=== PATIENT | female | born 1985 | race Caucasian/White ===

== ENCOUNTER 2022-12-17 16:25 | Emergency (ER) | payer MEDICARE, OTHER ==
--- NOTE | 2022-12-17 17:20 | ED ---
General Adult HPI - General Source: RN notes reviewed <Carolyn Riddle - Last Filed: 12/17/22 17:19> <Aniket Keyes - Last Filed: 12/17/22 20:54> - General Stated complaint: sob Time Seen by Provider: 12/17/22 17:19 - History of Present Illness Initial comments: 37-year-old female who is deaf presents the emergency department the chief complaint of shortness of breath 2 weeks. Patient denies history of pulmonary embolism. Denies anticoagulant use. (Carolyn Riddle) 37-year-old female with a past medical history significant for deafness and asthma presents to the ED with a chief complaint of cough. Patient states for the past 2 weeks has had cough, congestion, tightness in her chest, and pain across her chest especially with deep breath and cough. States that she was initially seen at [facility] urgent [facility] and was prescribed a Medrol Dosepak and antibiotics. Despite taking these, patient reports that symptoms continuous and tightness in her chest increased today prompting presentation again to [facility] urgent [facility]. There, x-ray of the chest performed which showed no evidence of pneumonia. However there are, patient tachycardic and with complaints of chest pain sent to the ED to rule out PE. (Aniket Keyes) - Related Data Allergies Allergy/AdvReac Type Severity Reaction Status Date / Time No Known Allergies Allergy Verified 12/17/22 19:36 Review of Systems ROS Other: All systems not noted in ROS Statement are negative. <Carolyn Riddle - Last Filed: 12/17/22 17:19> ROS Other: All systems not noted in ROS Statement are negative. <Aniket Keyes - Last Filed: 12/17/22 20:54> ROS Statement: Those systems with pertinent positive or pertinent negative responses have been documented in the HPI. General Exam General appearance: alert, in no apparent distress Head exam: Present: atraumatic, normocephalic, normal inspection Eye exam: Present: normal appearance, PERRL, EOMI. Absent: scleral icterus, conjunctival injection, periorbital swelling ENT exam: Present: normal exam, mucous membranes moist Neck exam: Present: normal inspection. Absent: tenderness, meningismus, lympha denopathy Respiratory exam: Present: normal lung sounds bilaterally. Absent: respiratory distress, wheezes, rales, rhonchi, stridor Cardiovascular Exam: Present: regular rate, normal rhythm, normal heart sounds. Absent: systolic murmur, diastolic murmur, rubs, gallop, clicks GI/Abdominal exam: Present: soft, normal bowel sounds. Absent: distended, tenderness, guarding, rebound, rigid Extremities exam: Present: normal inspection, full ROM, normal capillary refill. Absent: tenderness, pedal edema, joint swelling, calf tenderness Back exam: Present: normal inspection Neurological exam: Present: alert, oriented X3, CN II-XII intact Psychiatric exam: Present: normal affect, normal mood Skin exam: Present: warm, dry, intact, normal color. Absent: rash <Carolyn Riddle - Last Filed: 12/17/22 17:19> Limitations: language barrier (Deaf) General appearance: alert, in no apparent distress Neck exam: Present: normal inspection Respiratory exam: Present: normal lung sounds bilaterally (Mimimal inspiratory and expiratory wheezing otherwise no dyspnea. Respiratory rate regular) Cardiovascular Exam: Present: normal rhythm, tachycardia Extremities exam: Present: normal inspection Back exam: Present: normal inspection Neurological exam: Present: alert, oriented X3 Skin exam: Present: warm, dry <Aniket Keyes - Last Filed: 12/17/22 20:54> - General Exam Comments Initial Comments: Visual Physical Exam Vital signs reviewed General: Well-appearing, nontoxic, no acute distress. Head: Normocephalic, atraumatic Eyes: PERRLA, EOMI ENT: Airway patent Chest: Nonlabored breathing Skin: No visual rash, normal skin tone Neuro: Alert and oriented 3 Musculoskeletal: No gross abnormalities I performed the quick note portion of this exam, verbal signature Carolyn Riddle PA-C (Carolyn Riddle) Course Vital Signs 12/17/22 12/17/22 17:12 19:36 Temperature 98.2 F Pulse Rate 111 H Respiratory 20 18 Rate Blood Pressure 114/70 O2 Sat by Pulse 98 Oximetry Medical Decision Making - Lab Data Result diagrams: 12/17/22 19:18 12/17/22 19:18 <Aniket Keyes - Last Filed: 12/17/22 20:54> - Medical Decision Making Was pt. sent in by a medical professional or institution ([facility], [employer], urgent care, hospital, or residential...) When possible be specific @ -No Did you speak to anyone other than the patient for history (EMS, parent, family, police, friend...)? What history was obtained from this source @ -No Did you review nursing and triage notes (agree or disagree)? Why? @ -I reviewed and agree with nursing and triage notes Were old charts reviewed (outside hosp., previous admission, EMS record, old EKG, old radiological studies, urgent care reports/EKG's, residential records)? Report findings @ -[facility] urgent care records reviewed showing a chest x-ray with no evidence of pneumonia. Patient was found to be tachycardic care and was advised to present to the ED to rule out embolism. Differential Diagnosis (chest pain, altered mental status, abdominal pain women, abdominal pain men, vaginal bleeding, weakness, fever, dyspnea, syncope, headache, dizziness, GI bleed, back pain, seizure, CVA, palpatations, mental health, musculoskeletal)? @ -Differential Dyspnea: Coronary syndrome, arrhythmia, tamponade, asthma, COPD, pulmonary embolism, pneumonia, pneumothorax, pulmonary effusion, anaphylaxis, diabetic ketoacidosis, flailed chest, pulmonary contusion, diaphragmatic rupture, anemia, neuromuscular, this is not meant to be an all-inclusive list. EKG interpreted by me (3pts min.). @ -As above X-rays interpreted by me (1pt min.). @ -Chest x-ray By me showing no evidence of pneumonia or other acute process. CT interpreted by me (1pt min.). @ -None done U/S interpreted by me (1pt. min.). @ -None done What testing was considered but not performed or refused? (CT, X-rays, U/S, labs)? Why? @ -None What meds were considered but not given or refused? Why? @ -None Did you discuss the management of the patient with other professionals (professionals i.e. [facility] De Jesus, [employer], lab, RT, psych nurse, case management social worker, cushion worker, teacher, command and control officer, case management director)? Give summary @ -No Was smoking cessation discussed for >3mins.? @ -No Was critical care preformed (if so, how long)? @ -No Were there social determinants of health that impacted care today? How? (Homelessness, low income, unemployed, alcoholism, drug addiction, transportation, low edu. Level, literacy, decrease access to med. care, snf, rehab)? @ -No Was there de-escalation of care discussed even if they declined (Discuss DNR or withdrawal of care, Hospice)? DNR status @ -No What co-morbidities impacted this encounter? (DM, HTN, Smoking, COPD, CAD, Cancer, CVA, ARF, Chemo, Hep., AIDS, mental health diagnosis, sleep apnea, morbid obesity)? @ -Asthma Was patient admitted / discharged? Hospital course, mention meds given and route, prescriptions, significant lab abnormalities, going to OR and other pertinent info. @ -Discharge 37-year-old female presenting to the ED with complaints of cough, chest tightness, and intermittent chest pain across her chest especially with deep breath or cough is acting today to the ED to rule out a PE.Laboratory studies show an elevated white blood cell count 11.3 otherwise unremarkable, D-dimer 0.30. Chemistry panel unremarkable. Troponin negative. Chest x-ray shows no evidence of pneumonia or other acute process. Patient had improvement of his tightness here with DuoNeb breathing treatment. Provided Solu-Medrol IM as well. Patient discharged home in stable condition. Discussed return precautions with patient who verbalizes agreement. Undiagnosed new problem with uncertain prognosis? @ -No Drug Therapy requiring intensive monitoring for toxicity (Heparin, Nitro, Insulin, Cardizem)? @ -No Were any procedures done? @ -No Diagnosis/symptom? @ -Bronchitis Acute, or Chronic, or Acute on Chronic? @ -Acute Uncomplicated (without systemic symptoms) or Complicated (systemic symptoms)? @ -Uncomplicated Side effects of treatment? @ -No Exacerbation, Progression, or Severe Exacerbation? @ -No Poses a threat to life or bodily function? How? (Chest pain, USA, SD, pneumonia, PE, COPD, DKA, ARF, appy, cholecystitis, CVA, Diverticulitis, Homicidal, Suicidal, threat to staff... and all critical care pts) @ -No (Aniket Keyes) - Lab Data Lab Results 12/17/22 12/17/22 12/17/22 Range/Units 19:18 19:18 19:18 WBC 11.3 H (3.8-10.6) k/uL RBC 5.01 (3.80-5.40) m/uL Hgb 14.3 (11.4-16.0) gm/dL Hct 44.0 (34.0-46.0) % MCV 87.9 (80.0-100.0) fL MCH 28.6 (25.0-35.0) pg MCHC 32.5 (31.0-37.0) g/dL RDW 13.6 (11.5-15.5) % Plt Count 333 (150-450) k/uL MPV 7.8 Neutrophils % 66 % Lymphocytes % 26 % Monocytes % 4 % Eosinophils % 2 % Basophils % 1 % Neutrophils # 7.5 (1.3-7.7) k/uL Lymphocytes # 3.0 (1.0-4.8) k/uL Monocytes # 0.4 (0-1.0) k/uL Eosinophils # 0.3 (0-0.7) k/uL Basophils # 0.1 (0-0.2) k/uL PT 10.0 (10.0-12.5) sec INR 0.9 (<1.2) APTT 25.5 (22.0-30.0) sec D-Dimer 0.30 (<0.60) mg/L FEU Sodium 137 (137-145) mmol/L Potassium 4.4 (3.5-5.1) mmol/L Chloride 103 (98-107) mmol/L Carbon Dioxide 22 (22-30) mmol/L Anion Gap 12 mmol/L BUN 8 (7-17) mg/dL Creatinine 0.43 L (0.52-1.04) mg/dL Est GFR (CKD-EPI)AfAm >90 (>60 ml/min/1.73 sqM) Est GFR (CKD-EPI)NonAf >90 (>60 ml/min/1.73 sqM) Glucose 99 (74-99) mg/dL Calcium 9.3 (8.4-10.2) mg/dL Total Bilirubin 0.5 (0.2-1.3) mg/dL AST 18 (14-36) U/L ALT 23 (4-34) U/L Alkaline Phosphatase 96 (38-126) U/L Troponin I (0.000-0.034) ng/mL Total Protein 7.5 (6.3-8.2) g/dL Albumin 4.2 (3.5-5.0) g/dL Influenza Type A (PCR) (Not Detectd) Influenza Type B (PCR) (Not Detectd) RSV (PCR) (Not Detectd) SARS-CoV-2 (PCR) (Not Detectd) 12/17/22 12/17/22 Range/Units 19:18 19:18 WBC (3.8-10.6) k/uL RBC (3.80-5.40) m/uL Hgb (11.4-16.0) gm/dL Hct (34.0-46.0) % MCV (80.0-100.0) fL MCH (25.0-35.0) pg MCHC (31.0-37.0) g/dL RDW (11.5-15.5) % Plt Count (150-450) k/uL MPV Neutrophils % % Lymphocytes % % Monocytes % % Eosinophils % % Basophils % % Neutrophils # (1.3-7.7) k/uL Lymphocytes # (1.0-4.8) k/uL Monocytes # (0-1.0) k/uL Eosinophils # (0-0.7) k/uL Basophils # (0-0.2) k/uL PT (10.0-12.5) sec INR (<1.2) APTT (22.0-30.0) sec D-Dimer (<0.60) mg/L FEU Sodium (137-145) mmol/L Potassium (3.5-5.1) mmol/L Chloride (98-107) mmol/L Carbon Dioxide (22-30) mmol/L Anion Gap mmol/L BUN (7-17) mg/dL Creatinine (0.52-1.04) mg/dL Est GFR (CKD-EPI)AfAm (>60 ml/min/1.73 sqM) Est GFR (CKD-EPI)NonAf (>60 ml/min/1.73 sqM) Glucose (74-99) mg/dL Calcium (8.4-10.2) mg/dL Total Bilirubin (0.2-1.3) mg/dL AST (14-36) U/L ALT (4-34) U/L Alkaline Phosphatase (38-126) U/L Troponin I <0.012 (0.000-0.034) ng/mL Total Protein (6.3-8.2) g/dL Albumin (3.5-5.0) g/dL Influenza Type A (PCR) Not Detected (Not Detectd) Influenza Type B (PCR) Not Detected (Not Detectd) RSV (PCR) Not Detected (Not Detectd) SARS-CoV-2 (PCR) Not Detected (Not Detectd) Disposition <Carolyn Riddle - Last Filed: 12/17/22 17:19> Is patient prescribed a controlled substance at d/c from ED?: No Time of Disposition: 20:54 <Aniket Keyes - Last Filed: 12/17/22 20:54> Clinical Impression: Bronchitis, Asthma exacerbation Disposition: HOME SELF-CARE Condition: Good Instructions (If sedation given, give patient instructions): Asthma (ED), Acute Bronchitis (ED) Additional Instructions: Please return to the Emergency Department if symptoms worsen or any other concerns. Referrals: Sushant Petty MD [REFERRING] - 1-2 days
[2022-12-17 17:23] VITALS: TEMP 98.2
[2022-12-17 19:44] VITALS: RESP 18
[2022-12-17 20:04] LABS: Basophils # (A) 0.1 k/uL (0-0.2); Basophils % (A) 1 %; Eosinophils # (A) 0.3 k/uL (0-0.7); Eosinophils % (A) 2 %; HGB 14.3 gm/dL (11.4-16.0); Lymphocytes % (A) 26 %; MCH 28.6 pg (25.0-35.0); MCHC 32.5 g/dL (31.0-37.0); MCV 87.9 fL (80.0-100.0); Mean Platelet Volume 7.8; Monocytes # (A) 0.4 k/uL (0-1.0); Monocytes % (A) 4 %; Neutrophils # (A) 7.5 k/uL (1.3-7.7); Neutrophils % (A) 66 %; Platelet Count 333 k/uL (150-450); RBC 5.01 m/uL (3.80-5.40); RDW 13.6 % (11.5-15.5); WBC 11.3 k/uL (3.8-10.6)
[2022-12-17 20:17] LABS: ALT 23 U/L (4-34); AST 18 U/L (14-36); African American GFR (CKD) >90 (>60 ml/min/1.73 sqM); Albumin 4.2 g/dL (3.5-5.0); Alkaline Phosphatase 96 U/L (38-126); Anion Gap 12 mmol/L; Blood Urea Nitrogen 8 mg/dL (7-17); Calcium 9.3 mg/dL (8.4-10.2); Carbon Dioxide 22 mmol/L (22-30); Chloride 103 mmol/L (98-107); Glucose 99 mg/dL (74-99); Non-African American GFR(CKD) >90 (>60 ml/min/1.73 sqM); Potassium 4.4 mmol/L (3.5-5.1); Sodium 137 mmol/L (137-145); Total Bilirubin 0.5 mg/dL (0.2-1.3); Total Protein 7.5 g/dL (6.3-8.2)
[2022-12-17 20:19] LABS: INR 0.9 (<1.2); Partial Thromboplastin Time 25.5 sec (22.0-30.0)
[2022-12-17] MEDS ORDERED: IPRATROPIUM-ALBUTEROL 3 ML NEB INHALATION STA (20:33)
[2022-12-17] MEDS ORDERED: methylPREDNISolone SOD SUCCI 125 MG/2 ML VIAL IM ONE (20:54)
[2022-12-17 21:09] LABS: Appearance,Urine Cloudy (Clear); Bacteria,Urine Occasional /hpf; Bilirubin,Urine Negative (Negative); Blood,Urine Negative (Negative); Color,Urine Light Yellow; Glucose,Urine (UA) Negative (Negative); Ketones,Urine Negative (Negative); Leukocyte Esterase,Urine Negative (Negative); Mucus,Urine Few /hpf; Nitrite,Urine Negative (Negative); PH, Urine 5.5 (5.0-8.0); Protein,Urine Negative (Negative); RBC,Urine 1 /hpf (0-5); Squamous Epithelial Cell,Urine 11 /hpf (0-4); Urobilinogen,Urine <2.0 mg/dL (<2.0); WBC,Urine <1 /hpf (0-5)
[2022-12-17] MEDS ORDERED: methylPREDNISolone SOD SUCCI 125 MG/2 ML VIAL IV STA (21:11)
--- NOTE | 2022-12-17 21:33 | XR ---
EXAMINATION TYPE: XR chest 2V DATE OF EXAM: 12/17/2022 6:54 PM CLINICAL INDICATION:Female, 37 years old with history of SOB; [facility] COMPARISON: None TECHNIQUE: XR chest 2V Frontal and lateral views of the chest. FINDINGS: Lines/Tubes: No indwelling lines are seen. Lungs/Pleura: There is no evidence of pleural effusion, focal consolidation, or pneumothorax. Pulmonary vascularity: Unremarkable. Heart/mediastinum: Cardiomediastinal silhouette is unremarkable. Musculoskeletal: No acute osseous pathology. Other findings: Partially seen surgical clips over the upper abdomen. IMPRESSION: No acute cardiopulmonary disease/process.
[2022-12-17 22:57] VITALS: BP 123/75; PULSE 100
== END 2022-12-17 22:51 | disposition home or self-care (01) ==
LOC: EC 16:25
DX: J45.901 Unspecified asthma with (acute) exacerbation (principal); Z20.822 Contact with and (suspected) exposure to COVID-19
CPT/HCPCS: 36415; 94640; 93005; 85379; 80053; 84484; 85025; 85610; 85730; 81001; 81025; 87636; 71046; 99285; 96374; J2930

== ENCOUNTER 2023-10-21 17:35 | Emergency (ER) | payer MEDICARE, OTHER ==
[2023-10-21] MEDS ORDERED: SODIUM CHLORIDE 0.9% 1,000 ML BAG ONE (20:20)
[2023-10-21] MEDS ORDERED: HYDROmorphone 0.5 MG/0.5 ML SYRINGE ONE (21:59)
[2023-10-21] MEDS ORDERED: ONDANSETRON 4 MG/2 ML VIAL ONE (21:59)
[2023-10-21] MEDS ORDERED: levETIRAcetam IV 500 MG/5 ML VIAL ONE (22:04)
[2023-10-22] MEDS ORDERED: ACETAMINOPHEN TAB 500 MG TAB ONE (00:20)
--- NOTE | 2023-11-11 13:59 | CT ---
EXAMINATION TYPE: CT facial bones wo con CT DLP: 683 mGycm, Automated exposure control for dose reduction was used. DATE OF EXAM: 10/21/2023 9:29 PM COMPARISON: None. CLINICAL INDICATION:Seizure, fall. Site ID [facility] Arlene Hoyt ID [id number] TECHNIQUE: Multiple unenhanced axial CT images were obtained of the facial bones soft tissue and bone windows. Coronal, axial and sagittal reformatted images were also provided in soft tissue and bone windows and submitted for interpretation. Additional 3-D reformatted images were obtained on a [employer] workstation. FINDINGS: There is no evidence of fracture, subluxation, dislocation, or significant soft tissue swelling. The orbital contents are unremarkable.The temporal-mandibular joints appear symmetric. The visualized por tion of the paranasal sinuses appear clear. Leftward deviation of the nasal septum. Right ear cochle ar implant device partially visualized. IMPRESSION: No acute process.
--- NOTE | 2023-11-17 08:39 | XR ---
EXAMINATION TYPE: XR ribs LT w pa chest xray DATE OF EXAM: 10/21/2023 9:15 PM CLINICAL INDICATION: Left-sided rib pain. Site ID [facility] Arlene Hoyt ID [id number] COMPARISON: None TECHNIQUE: Frontal and oblique views of the left ribs with frontal chest radiograph. FINDINGS: The ribs have a normal appearance. No evidence of fracture. Overall, the lungs are clear. The cardiac silhouette is normal in size. The remaining osseous structures are intact. IMPRESSION: No acute displaced rib fracture or process.
== END 2023-10-22 01:10 | disposition home or self-care (01) ==
LOC: EC 17:35
CPT/HCPCS: 70486; 93005; 96374; 96375; 99284

== ENCOUNTER 2024-02-03 15:15 | Emergency (ER) | payer MEDICARE, OTHER ==
[2024-02-03 16:25] VITALS: RESP 18
[2024-02-03 17:27] LABS: Basophils # (A) 0.1 k/uL (0-0.2); Basophils % (A) 0 %; Eosinophils # (A) 0.3 k/uL (0-0.7); Eosinophils % (A) 2 %; HCT 38.8 % (34.0-46.0); HGB 12.8 gm/dL (11.4-16.0); Lymphocytes % (A) 24 %; MCH 28.8 pg (25.0-35.0); MCHC 32.9 g/dL (31.0-37.0); MCV 87.5 fL (80.0-100.0); Mean Platelet Volume 7.4; Monocytes # (A) 0.4 k/uL (0-1.0); Monocytes % (A) 4 %; Neutrophils # (A) 8.5 k/uL (1.3-7.7); Neutrophils % (A) 69 %; Platelet Count 327 k/uL (150-450); RBC 4.43 m/uL (3.80-5.40); RDW 13.9 % (11.5-15.5); WBC 12.4 k/uL (3.8-10.6)
--- NOTE | 2024-02-03 17:27 | XR ---
EXAMINATION TYPE: XR chest 2V DATE OF EXAM: 02/03/2024 4:41 PM COMPARISON: Left rib radiograph 11/24/2023, chest radiograph 12/17/2022 TECHNIQUE: XR chest 2V Frontal and lateral views of the chest. CLINICAL INDICATION:Female, 38 years old with history of difficulty breathing; FINDINGS: Lungs/Pleura: There is no evidence of pleural effusion, focal consolidation, or pneumothorax. Pulmonary vascularity: Unremarkable. Heart/mediastinum: Cardiomediastinal silhouette is unremarkable. Musculoskeletal: No acute osseous pathology. IMPRESSION: No acute cardiopulmonary disease/process. [facility], , 02/03/2024 5:25 PM
[2024-02-03 17:31] LABS: VBG PH 7.26 (7.31-7.41)
--- NOTE | 2024-02-03 17:38 | ED ---
SOB HPI - General Chief Complaint: Shortness of Breath Stated Complaint: Abn Labs Time Seen by Provider: 02/03/24 15:34 Source: patient, healthcare architect, RN notes reviewed Mode of arrival: ambulatory Limitations: no limitations - History of Present Illness MD Complaint: shortness of breath Onset/Timin -: days(s) Consistency: constant Improves With: upright position Worsens With: lying flat, exertion Known History Of: asthma Associated Symptoms: orthopnea Treatments Prior to Arrival: bronchodilator - Related Data Previous Rx's Medication Instructions Recorded Azithromycin [Zithromax Z Pack] 250 tab PO DIRECTED #4 tab 02/03/24 predniSONE 10 mg PO DIRECTED #30 tab 02/03/24 Allergies Allergy/AdvReac Type Severity Reaction Status Date / Time No Known Allergies Allergy Verified 12/17/22 19:36 Review of Systems ROS Statement: Those systems with pertinent positive or pertinent negative responses have been documented in the HPI. ROS Other: All systems not noted in ROS Statement are negative. Past Medical History Past Medical History: Asthma, Hearing Disorder / Deafness, Seizure Disorder Additional Past Medical History / Comment(s): deaf Past Surgical History: Section, Cholecystectomy Additional Past Surgical History / Comment(s): L foot. chochlear implant Smoking Status: Never smoker Past Alcohol Use History: None Reported Past Drug Use History: None Reported General Exam Limitations: no limitations General appearance: alert, in no apparent distress Head exam: Present: atraumatic, normocephalic, normal inspection Eye exam: Present: normal appearance, PERRL, EOMI. Absent: scleral icterus, conjunctival injection, periorbital swelling ENT exam: Present: normal exam, mucous membranes moist Neck exam: Present: normal inspection. Absent: tenderness, meningismus, lymphadenopathy Respiratory exam: Present: rales (Rales auscultated in apex of bilateral lower lobes), decreased breath sounds (Diminished lung sounds in the bases of bilateral lower and upper lobes). Absent: respiratory distress, wheezes, rhonchi, stridor Cardiovascular Exam: Present: regular rate, normal rhythm, normal heart sounds. Absent: systolic murmur, diastolic murmur, rubs, gallop, clicks GI/Abdominal exam: Present: soft, normal bowel sounds. Absent: distended, tenderness, guarding, rebound, rigid Extremities exam: Present: normal inspection, full ROM, normal capillary refill, other (Bilateral posterior tibialis pulse +2). Absent: tenderness, pedal edema, joint swelling, calf tenderness Back exam: Present: normal inspection Neurological exam: Present: alert, oriented X3, CN II-XII intact Psychiatric exam: Present: normal affect, normal mood Skin exam: Present: warm, dry, intact, normal color. Absent: rash Course Vital Signs 02/03/24 02/03/24 02/03/24 15:42 16:17 19:01 Temperature 98.6 F Pulse Rate 90 94 Respiratory 20 18 Rate Blood Pressure 98/69 O2 Sat by Pulse 99 Oximetry 02/03/24 19:09 Temperature Pulse Rate 88 Respiratory Rate Blood Pressure O2 Sat by Pulse Oximetry Medical Decision Making - Medical Decision Making Was pt. sent in by a medical professional or institution (CLARIBEL De Jesus, PRACTICE OR STUDENT TEACHER, urgent care, hospital, or group home...) When possible be specific @ -[No] Did you speak to anyone other than the patient for history (EMS, parent, family, police, friend...)? What history was obtained from this source @ -[No] Did you review nursing and triage notes (agree or disagree)? Why? @ -[I reviewed and agree with nursing and triage notes] Were old charts reviewed (outside hosp., previous admission, EMS record, old EKG, old radiological studies, urgent care reports/EKG's, group home records)? Report findings @ -[No old charts were reviewed] Differential Diagnosis (chest pain, altered mental status, abdominal pain women, abdominal pain men, vaginal bleeding, weakness, fever, dyspnea, syncope, headache, dizziness, GI bleed, back pain, seizure, CVA, palpatations, mental health, musculoskeletal)? @ -Differential Dyspnea: Coronary syndrome, arrhythmia, tamponade, asthma, COPD, pulmonary embolism, pneumonia, pneumothorax, pulmonary effusion, anaphylaxis, diabetic ketoacidosis, flailed chest, pulmonary contusion, diaphragmatic rupture, anemia, neuromuscular, this is not meant to be an all-inclusive list. EKG interpreted by me (3pts min.). @ -Sinus rhythm without ST changes or T wave inversion. Ventricular rate 86 bpm, MARCOS 153 ms, QRS duration 85 ms, QTc 392 ms. X-rays interpreted by me (1pt min.). @ -Chest x-ray shows no pleural effusion, focal infiltrates, pulmonary edema or pneumothorax. Patient insists on CT scan despite negative CXR findings. CT interpreted by me (1pt min.). @ -[None done] U/S interpreted by me (1pt. min.). @ -[None done] What testing was considered but not performed or refused? (CT, X-rays, U/S, labs)? Why? @ -[None] What meds were considered but not given or refused? Why? @ -[None] Did you discuss the management of the patient with other professionals (professionals i.e. , PA, PRACTICE OR STUDENT TEACHER, lab, RT, psych nurse, director social welfare, scientific process operator, teacher, associate loan officer, case resource manager)? Give summary @ -[No] Was smoking cessation discussed for >3mins.? @ -[No] Was critical care preformed (if so, how long)? @ -[No] Were there social determinants of health that impacted care today? How? (Homelessness, low income, unemployed, alcoholism, drug addiction, transportation, low edu. Level, literacy, decrease access to med. care, skilled nursing, rehab)? @ -[No] Was there de-escalation of care discussed even if they declined (Discuss DNR or withdrawal of care, Hospice)? DNR status @ -[No] What co-morbidities impacted this encounter? (DM, HTN, Smoking, COPD, CAD, Cancer, CVA, ARF, Chemo, Hep., AIDS, mental health diagnosis, sleep apnea, morbid obesity)? @ -[None] Was patient admitted / discharged? Hospital course, mention meds given and route, prescriptions, significant lab abnormalities, going to OR and other pertinent info. @ -[hospital course] Undiagnosed new problem with uncertain prognosis? @ -[No] Drug Therapy requiring intensive monitoring for toxicity (Heparin, Nitro, Insulin, Cardizem)? @ -[No] Were any procedures done? @ -[No] Diagnosis/symptom? @ -Acute bronchitis, asthma Acute, or Chronic, or Acute on Chronic? @ -Acute Uncomplicated (without systemic symptoms) or Complicated (systemic symptoms)? @ -Complicated Side effects of treatment? @ -[No] Exacerbation, Progression, or Severe Exacerbation? @ -Progression Poses a threat to life or bodily function? How? (Chest pain, [place], [place], pneumonia, PE, COPD, DKA, ARF, appy, cholecystitis, CVA, Diverticulitis, Homicidal, Suicidal, threat to staff... and all critical care pts) @ -[No] - Lab Data Result diagrams: 02/03/24 17:14 02/03/24 17:14 Lab Results 02/03/24 02/03/24 02/03/24 Range/Units 17:14 17:14 17:14 WBC 12.4 H (3.8-10.6) k/uL RBC 4.43 (3.80-5.40) m/uL Hgb 12.8 (11.4-16.0) gm/dL Hct 38.8 (34.0-46.0) % MCV 87.5 (80.0-100.0) fL MCH 28.8 (25.0-35.0) pg MCHC 32.9 (31.0-37.0) g/dL RDW 13.9 (11.5-15.5) % Plt Count 327 (150-450) k/uL MPV 7.4 Neutrophils % 69 % Lymphocytes % 24 % Monocytes % 4 % Eosinophils % 2 % Basophils % 0 % Neutrophils # 8.5 H (1.3-7.7) k/uL Lymphocytes # 3.0 (1.0-4.8) k/uL Monocytes # 0.4 (0-1.0) k/uL Eosinophils # 0.3 (0-0.7) k/uL Basophils # 0.1 (0-0.2) k/uL PT 9.7 L (10.0-12.5) sec INR 0.9 (<1.2) APTT 25.3 (22.0-30.0) sec D-Dimer 0.48 (<0.60) mg/L FEU VBG pH (7.31-7.41) VBG pCO2 (37-51) mmHg VBG HCO3 (24-28) mmol/L Sodium 136 L (137-145) mmol/L Potassium 3.4 L (3.5-5.1) mmol/L Chloride 103 (98-107) mmol/L Carbon Dioxide 25 (22-30) mmol/L Anion Gap 8 mmol/L BUN 6 L (7-17) mg/dL Creatinine 0.53 (0.52-1.04) mg/dL Est GFR (CKD-EPI)AfAm >90 (>60 ml/min/1.73 sqM) Est GFR (CKD-EPI)NonAf >90 (>60 ml/min/1.73 sqM) Glucose 129 H (74-99) mg/dL Lactic Ac Sepsis Rflx Plasma Lactic Acid Kody (0.7-2.0) mmol/L Calcium 9.0 (8.4-10.2) mg/dL Total Bilirubin 0.6 (0.2-1.3) mg/dL AST 13 L (14-36) U/L ALT 24 (4-34) U/L Alkaline Phosphatase 100 (38-126) U/L Troponin I (0.000-0.034) ng/mL NT-Pro-B Natriuret Pep 33 pg/mL Total Protein 7.2 (6.3-8.2) g/dL Albumin 4.2 (3.5-5.0) g/dL 02/03/24 02/03/24 02/03/24 Range/Units 17:14 17:14 17:14 WBC (3.8-10.6) k/uL RBC (3.80-5.40) m/uL Hgb (11.4-16.0) gm/dL Hct (34.0-46.0) % MCV (80.0-100.0) fL MCH (25.0-35.0) pg MCHC (31.0-37.0) g/dL RDW (11.5-15.5) % Plt Count (150-450) k/uL MPV Neutrophils % % Lymphocytes % % Monocytes % % Eosinophils % % Basophils % % Neutrophils # (1.3-7.7) k/uL Lymphocytes # (1.0-4.8) k/uL Monocytes # (0-1.0) k/uL Eosinophils # (0-0.7) k/uL Basophils # (0-0.2) k/uL PT (10.0-12.5) sec INR (<1.2) APTT (22.0-30.0) sec D-Dimer (<0.60) mg/L FEU VBG pH 7.26 L (7.31-7.41) VBG pCO2 57 H (37-51) mmHg VBG HCO3 26 (24-28) mmol/L Sodium (137-145) mmol/L Potassium (3.5-5.1) mmol/L Chloride (98-107) mmol/L Carbon Dioxide (22-30) mmol/L Anion Gap mmol/L BUN (7-17) mg/dL Creatinine (0.52-1.04) mg/dL Est GFR (CKD-EPI)AfAm (>60 ml/min/1.73 sqM) Est GFR (CKD-EPI)NonAf (>60 ml/min/1.73 sqM) Glucose (74-99) mg/dL Lactic Ac Sepsis Rflx Plasma Lactic Acid Kody 2.1 H* (0.7-2.0) mmol/L Calcium (8.4-10.2) mg/dL Total Bilirubin (0.2-1.3) mg/dL AST (14-36) U/L ALT (4-34) U/L Alkaline Phosphatase (38-126) U/L Troponin I <0.012 (0.000-0.034) ng/mL NT-Pro-B Natriuret Pep pg/mL Total Protein (6.3-8.2) g/dL Albumin (3.5-5.0) g/dL 02/03/24 Range/Units 18:12 WBC (3.8-10.6) k/uL RBC (3.80-5.40) m/uL Hgb (11.4-16.0) gm/dL Hct (34.0-46.0) % MCV (80.0-100.0) fL MCH (25.0-35.0) pg MCHC (31.0-37.0) g/dL RDW (11.5-15.5) % Plt Count (150-450) k/uL MPV Neutrophils % % Lymphocytes % % Monocytes % % Eosinophils % % Basophils % % Neutrophils # (1.3-7.7) k/uL Lymphocytes # (1.0-4.8) k/uL Monocytes # (0-1.0) k/uL Eosinophils # (0-0.7) k/uL Basophils # (0-0.2) k/uL PT (10.0-12.5) sec INR (<1.2) APTT (22.0-30.0) sec D-Dimer (<0.60) mg/L FEU VBG pH (7.31-7.41) VBG pCO2 (37-51) mmHg VBG HCO3 (24-28) mmol/L Sodium (137-145) mmol/L Potassium (3.5-5.1) mmol/L Chloride (98-107) mmol/L Carbon Dioxide (22-30) mmol/L Anion Gap mmol/L BUN (7-17) mg/dL Creatinine (0.52-1.04) mg/dL Est GFR (CKD-EPI)AfAm (>60 ml/min/1.73 sqM) Est GFR (CKD-EPI)NonAf (>60 ml/min/1.73 sqM) Glucose (74-99) mg/dL Lactic Ac Sepsis Rflx Y Plasma Lactic Acid Kody (0.7-2.0) mmol/L Calcium (8.4-10.2) mg/dL Total Bilirubin (0.2-1.3) mg/dL AST (14-36) U/L ALT (4-34) U/L Alkaline Phosphatase (38-126) U/L Troponin I (0.000-0.034) ng/mL NT-Pro-B Natriuret Pep pg/mL Total Protein (6.3-8.2) g/dL Albumin (3.5-5.0) g/dL Disposition Clinical Impression: Bronchitis, Asthma Disposition: HOME SELF-CARE Condition: Good Instructions (If sedation given, give patient instructions): Asthma (ED), Acute Bronchitis (ED) Prescriptions: predniSONE 10 mg PO DIRECTED #30 tab Azithromycin [Zithromax Z Pack] 250 tab PO DIRECTED #4 tab Is patient prescribed a controlled substance at d/c from ED?: No Referrals: Cayla Gomez DO [Primary Care Provider] - 1-2 days Time of Disposition: 20:31
[2024-02-03 17:44] LABS: INR 0.9 (<1.2); Partial Thromboplastin Time 25.3 sec (22.0-30.0); Prothrombin Time 9.7 sec (10.0-12.5)
[2024-02-03 17:55] LABS: ALT 24 U/L (4-34); AST 13 U/L (14-36); African American GFR (CKD) >90 (>60 ml/min/1.73 sqM); Albumin 4.2 g/dL (3.5-5.0); Alkaline Phosphatase 100 U/L (38-126); Anion Gap 8 mmol/L; Blood Urea Nitrogen 6 mg/dL (7-17); Carbon Dioxide 25 mmol/L (22-30); Chloride 103 mmol/L (98-107); Glucose 129 mg/dL (74-99); Non-African American GFR(CKD) >90 (>60 ml/min/1.73 sqM); Potassium 3.4 mmol/L (3.5-5.1); Sodium 136 mmol/L (137-145); Total Bilirubin 0.6 mg/dL (0.2-1.3); Total Protein 7.2 g/dL (6.3-8.2)
[2024-02-03 18:04] LABS: NT-Pro-B-Type Natriuretic Pept 33 pg/mL
[2024-02-03] MEDS: methylPREDNISolone SOD SUCCI 125 MG/2 ML VIAL IV STA (18:32)
[2024-02-03] MEDS: IPRATROPIUM-ALBUTEROL 3 ML NEB INHALATION STA (18:57)
--- NOTE | 2024-02-03 20:09 | CT ---
EXAMINATION TYPE: CT chest wo con DATE OF EXAM: 02/03/2024 COMPARISON: Radiograph earlier today HISTORY: 38 year-old female shortness of breath, Dyspnea, fatigue. Negative x-ray, pt insisted on fur ther imaging. TECHNIQUE: Contiguous axial scanning of the chest without IV contrast. Coronal/sagittal reconstructi ons performed. CT DLP: 566.4mGycm. Automatic exposure control utilized for a dose reduction. FINDINGS: The heart is normal size without pericardial effusion. Aorta normal caliber with conventional branching anatomy. No thoracic lymphadenopathy with criteria. Breathing motion artifact in the lower lungs. There is mild diffuse bronchial wall thickening. No con solidation or pleural effusion. Visualized upper abdomen shows cholecystectomy clips. No other gross abnormality seen. Bones: Slight levoconvex curvature along the upper thoracic spine. IMPRESSION: Mild bronchial wall thickening could reflect bronchitis or asthma. Otherwise, no focal infiltrate see n. [facility], , 02/03/2024 8:07 PM
[2024-02-03] MEDS: AZITHROMYCIN 500 MG TAB PO STA (20:46)
[2024-02-03 20:54] VITALS: BP 122/81; PULSE 101; TEMP 98
== END 2024-02-03 20:56 | disposition home or self-care (01) ==
LOC: EC 15:15
DX: J40 Bronchitis, not specified as acute or chronic (principal)
CPT/HCPCS: 36415; 94640; 93005; 85379; 83880; 80053; 82803; 83605; 84484; 85025; 85610; 85730; 71046; 71250; 99285; 96374; J2919

== ENCOUNTER 2024-02-08 19:13 | Emergency (ER) | payer MEDICARE, OTHER ==
--- NOTE | 2024-02-08 19:29 | ED ---
Chest Pain HPI - History of Present Illness MD Complaint: chest pain Onset/Timin -: days(s) <Gume Dempsey - Last Filed: 02/08/24 19:27> - General Source: patient, RN notes reviewed Mode of arrival: ambulatory Limitations: language barrier <Jelly Galvan - Last Filed: 02/09/24 02:07> - General Chief Complaint: Shortness of Breath Stated Complaint: TAPAN Time Seen by Provider: 02/08/24 21:00 - History of Present Illness Initial Comments: Quick note: This is a 38-year-old female presenting with chest pain and nausea/vomiting since her last visit on 02/03/2024. Patient states treatment fr om last visit was not effective. Patient is hard of hearing. (Gume Dempsey) This is a 38-year-old female who presents to the emergency department for chest pain and shortness of breath. Patient was evaluated here for these symptoms on 02/03/2024. At that time she had already been taking doxycycline and prednisone. She was diagnosed with bronchitis during that visit and started on azithromycin and prednisone. States that since then she continues to get worse. Reports right-sided chest pain with radiation into the back. Unsure how to characterize her pain. It does seem to get worse with inhalation. She is using breathing treatments at home without any relief. She is deaf and a sign builder is used during conversation. (Jelly Galvan) - Related Data Previous Rx's Medication Instructions Recorded Azithromycin [Zithromax Z Pack] 250 tab PO DIRECTED #4 tab 02/03/24 predniSONE 10 mg PO DIRECTED #30 tab 02/03/24 Benzonatate [Tessalon Perle] 200 mg PO TID PRN #20 cap 02/09/24 Budesonide/Formoterol Fumarate 2 puff INHALATION BID #10.2 gm 02/09/24 [Symbicort 80-4.5 Mcg Inhaler] Indomethacin [Indocin] 50 mg PO TID PRN #30 cap 02/09/24 Allergies Allergy/AdvReac Type Severity Reaction Status Date / Time morphine Allergy Unknown Verified 02/08/24 22:43 Review of Systems ROS Other: All systems not noted in ROS Statement are negative. <Gume Dempsey - Last Filed: 02/08/24 19:27> ROS Other: All systems not noted in ROS Statement are negative. <Jelly Galvan - Last Filed: 02/09/24 02:07> ROS Statement: Those systems with pertinent positive or pertinent negative responses have been documented in the HPI. Past Medical History Past Medical History: Asthma, Hearing Disorder / Deafness, Seizure Disorder Additional Past Medical History / Comment(s): deaf Past Surgical History: Section, Cholecystectomy Additional Past Surgical History / Comment(s): L foot. chochlear implant Smoking Status: Never smoker Past Alcohol Use History: None Reported Past Drug Use History: None Reported <Gume Dempsey - Last Filed: 02/08/24 19:27> General Exam <Gume Dempsey - Last Filed: 02/08/24 19:27> Limitations: language barrier General appearance: alert, in no apparent distress Head exam: Present: atraumatic, normocephalic, normal inspection Respiratory exam: Present: decreased breath sounds, prolonged expiratory Cardiovascular Exam: Present: regular rate, normal rhythm, normal heart sounds. Absent: systolic murmur, diastolic murmur, rubs, gallop, clicks Neurological exam: Present: alert, oriented X3, CN II-XII intact Psychiatric exam: Present: normal affect, normal mood Skin exam: Present: warm, dry, intact, normal color. Absent: rash <Jelly Galvan - Last Filed: 02/09/24 02:07> - General Exam Comments Initial Comments: Visual Physical Exam Vital signs reviewed General: Well-appearing, nontoxic, no acute distress. Head: Normocephalic, atraumatic Eyes: PERRLA, EOMI ENT: Airway patent Chest: Nonlabored breathing Skin: No visual rash, normal skin tone Neuro: Alert and oriented 3 Musculoskeletal: No gross abnormalities (Gume Dempsey) Course Vital Signs 02/08/24 02/08/24 02/08/24 19:45 20:44 21:44 Temperature 98.6 F Pulse Rate 100 87 92 Respiratory 18 16 Rate Blood Pressure 123/76 129/69 O2 Sat by Pulse 96 99 Oximetry 02/08/24 02/09/24 02/09/24 21:55 00:49 01:00 Temperature Pulse Rate 94 80 88 Respiratory Rate Blood Pressure O2 Sat by Pulse Oximetry Chest Pain MDM <Gume Dempsey - Last Filed: 02/08/24 19:27> <Jelly Galvan - Last Filed: 02/09/24 02:07> - MDM I completed the quick note portion of this chart signed ZENON Ortiz (Gume Dempsey) This is a 38-year-old female who presents to the emergency department for chest pain and shortness of breath. Was pt. sent in by a medical professional or institution? @ -No Did you speak to anyone other than the patient for history? @ -No Did you review nursing and triage notes? @ -Yes, and I agree, it is accurate with regards to the patient's symptoms. Were old charts reviewed? @ -CT scan of the chest from 02/03/2024 demonstrating mild bronchial wall thickening that could reflect bronchitis or asthma. Differential Diagnosis? @ -Differential Chest Pain: Stable Angina, Unstable Angina, STEMI, NSTEMI Aortic Dissection, Pneumothorax, Musculoskeletal, Esophageal Spasm GERD, Cholecystitis, Pancreatitis, Zoster, this is not meant to be an all-inclusive list. EKG interpreted by me (3pts min.)? @ -EKG interpreted by me demonstrating the following: Sinus rhythm. Ventricular rate 95 bpm, AL interval 152 ms, QRS duration 90 ms, QTc 382 ms. X-rays interpreted by me (1pt min.)? @ -Chest x-ray obtained, my interpretation identifies no localized consolidations or infiltrates. CT interpreted by me (1pt min.)? @ -CTA of the chest obtained. My interpretation identifies no evidence of a pulmonary embolus. U/S interpreted by me (1pt. min.)? @ -Not obtained What testing was considered but not performed? (CT, X-rays, U/S, labs)? Why? @ -None What meds were considered but not given? Why? @ -None Did you discuss the management of the patient with other professionals? @ -No Did you reconcile home meds? @ -No Was smoking cessation discussed for >3mins.? @ -No Was critical care preformed (if so, how long)? @ -No Were there social determinants of health that impacted care today? How? (Homelessness, low income, unemployed, alcoholism, drug addiction, transportation, low edu. Level, literacy, decrease access to med. care, half-way, rehab)? @ -No Was there de-escalation of care discussed even if they declined? (Discuss DNR or withdrawal of care, Hospice)? @ -No What co-morbidities impacted this encounter? (DM, HTN, Smoking, COPD, CAD, Cancer, CVA, Hep., AIDS, mental health diagnosis, sleep apnea, morbid obesity)? @ -Asthma Was patient admitted / discharged? @ -Discharged. Lab work demonstrates leukocytosis with a white blood cell cou nt of 13.3. Lactic acid 2.5. Lab work otherwise relatively unremarkable. D- dimer and troponin negative. COVID, influenza, and RSV testing negative. Chest x-ray reveals no acute process. Patient requested a repeat CT scan to compare with a few days ago, since her x-ray then was negative as well. CTA of the chest was subsequently obtained. No evidence of a pulmonary embolus or other acute process was identified. Advised that the antibiotics are not helping as she does not appear to have a bacterial infection. This is most likely viral in nature and will need to resolve on its own. Chest pain may be related to something like pleurisy. On exam she had mildly decreased aeration, however she had no wheezing. She was given 2 DuoNeb breathing treatments with some improvement in symptoms. Indomethacin as prescribed to see if that offers her more benefit than [id number] NSAIDs for potential pleurisy or any other inflammation. Tessalon Perles prescribed for any additional coughing and she was given prescription for Symbicort to see if that helps with her asthmatic symptoms. She will continue with her albuterol inhaler and duoneb breathing treatments as well. Advised follow-up with her PCP for reevaluation. Patient discharged home in stable condition. Case discussed with ED attending Dr. Oh. Return precautions reviewed in depth, the patient is instructed to return to the emergency department with any new, worsening, or concerning symptoms. Patient verbalized understanding. Undiagnosed new problem with uncertain prognosis? @ -None Drug Therapy requiring intensive monitoring for toxicity (Heparin, Nitro, Insulin, Cardizem)? @ -None Were any procedures done? @ -None Diagnosis/symptom? @ -Asthmatic bronchitis, pleurisy Acute, or Chronic, or Acute on Chronic? @ -Acute Uncomplicated (without systemic symptoms) or Complicated (systemic symptoms)? @ -Uncomplicated Side effects of treatment? @ -None Exacerbation, Progression, or Severe Exacerbation] @ -Not applicable Poses a threat to life or bodily function? @ -No (Vogley,Jelly) Disposition <Gume Dempsey - Last Filed: 02/08/24 19:27> Is patient prescribed a controlled substance at d/c from ED?: No Time of Disposition: 01:38 <Jelly Galvan - Last Filed: 02/09/24 02:07> Clinical Impression: Asthmatic bronchitis, Pleurisy Disposition: HOME SELF-CARE Instructions (If sedation given, give patient instructions): Asthma (ED), Pleurisy (ED) Additional Instructions: Return to the emergency department with any new, worsening, or concerning sy mptoms. Take the indomethacin as 1 to 2 tablets up to 3 times daily to help with your pain. Do not take other anti-inflammatories such as ibuprofen with this, take 1 or the other. You may take it with Tylenol. Begin using the Symbicort inhaler as 2 puffs twice daily. Continue to use your albuterol inhaler every 4-6 hours as needed to help with your breathing and open up your lungs. Make sure you continue to use your breathing treatments as well. You can take the Tessalon Perles up to 3 times daily to help with your cough. Follow up with your primary care provider in 1-2 days. Prescriptions: Indomethacin [Indocin] 50 mg PO TID PRN #30 cap PRN Reason: Pain Budesonide/Formoterol Fumarate [Symbicort 80-4.5 Mcg Inhaler] 2 puff INHALATION BID #10.2 gm Benzonatate [Tessalon Perle] 200 mg PO TID PRN #20 cap PRN Reason: Cough Referrals: Cayla Gomez DO [Primary Care Provider] - 1-2 days
[2024-02-08 20:55] VITALS: RESP 16
[2024-02-08 21:31] LABS: Basophils % (A) 0 %; Eosinophils # (A) 0.1 k/uL (0-0.7); Eosinophils % (A) 1 %; HCT 38.1 % (34.0-46.0); HGB 12.6 gm/dL (11.4-16.0); Lymphocytes # (A) 1.4 k/uL (1.0-4.8); Lymphocytes % (A) 11 %; MCH 28.4 pg (25.0-35.0); MCV 86.1 fL (80.0-100.0); Mean Platelet Volume 7.7; Monocytes # (A) 0.2 k/uL (0-1.0); Monocytes % (A) 2 %; Neutrophils # (A) 11.4 k/uL (1.3-7.7); Neutrophils % (A) 86 %; Platelet Count 399 k/uL (150-450); RBC 4.42 m/uL (3.80-5.40); RDW 14.1 % (11.5-15.5); WBC 13.3 k/uL (3.8-10.6)
--- NOTE | 2024-02-08 21:41 | XR ---
EXAMINATION TYPE: XR chest 2V DATE OF EXAM: 02/08/2024 CLINICAL HISTORY: Chest pain TECHNIQUE: Frontal and lateral views of the chest are obtained. COMPARISON: CT chest February 03, 2024 FINDINGS: There is no suspicious new focal air space opacity, pleural effusion, or pneumothorax seen . The cardiac silhouette size remains within normal limits. The osseous structures are intact. IMPRESSION: No acute process. [facility], , 02/08/2024 9:39 PM
[2024-02-08] MEDS: IPRATROPIUM-ALBUTEROL 3 ML NEB INHALATION STA (21:44)
[2024-02-08 21:46] LABS: INR 0.9 (<1.2); Partial Thromboplastin Time 25.3 sec (22.0-30.0); Prothrombin Time 9.8 sec (10.0-12.5)
[2024-02-08] MEDS: KETOROLAC 15 MG/ML 1 ML VIAL IVP STA ×2 (21:47→22:48)
[2024-02-08] MEDS: methylPREDNISolone SOD SUCCI 125 MG/2 ML VIAL IV STA (21:47)
[2024-02-08 21:59] LABS: ALT 18 U/L (4-34); AST 13 U/L (14-36); African American GFR (CKD) >90 (>60 ml/min/1.73 sqM); Albumin 3.9 g/dL (3.5-5.0); Alkaline Phosphatase 97 U/L (38-126); Anion Gap 6 mmol/L; Blood Urea Nitrogen 12 mg/dL (7-17); Calcium 9.1 mg/dL (8.4-10.2); Carbon Dioxide 23 mmol/L (22-30); Chloride 106 mmol/L (98-107); Glucose 266 mg/dL (74-99); Magnesium 1.9 mg/dL (1.6-2.3); Non-African American GFR(CKD) >90 (>60 ml/min/1.73 sqM); Potassium 4.3 mmol/L (3.5-5.1); Sodium 135 mmol/L (137-145); Total Bilirubin 0.4 mg/dL (0.2-1.3); Total Protein 6.7 g/dL (6.3-8.2)
[2024-02-08 22:07] LABS: NT-Pro-B-Type Natriuretic Pept 42 pg/mL
[2024-02-08] MEDS ORDERED: RX INFO: IV CONTRAST WAS GIVEN 1 EACH MISC MISCELLANE PRN (22:08)
[2024-02-08 22:09] LABS: Appearance,Urine Clear (Clear); Bilirubin,Urine Negative (Negative); Blood,Urine Large (Negative); Color,Urine Light Red; Glucose,Urine (UA) 4+ (Negative); Ketones,Urine Trace (Negative); Leukocyte Esterase,Urine Trace (Negative); Nitrite,Urine Negative (Negative); PH, Urine 6.5 (5.0-8.0); Protein,Urine Trace (Negative); RBC,Urine >182 /hpf (0-5); Specific Gravity,Urine 1.014 (1.001-1.035); Squamous Epithelial Cell,Urine 1 /hpf (0-4); Urobilinogen,Urine <2.0 mg/dL (<2.0); WBC,Urine 7 /hpf (0-5)
[2024-02-08] MEDS ORDERED: guaiFENesin-Coden 100-10MG/5ML 10 ML CUP PO STA (22:16)
[2024-02-08] MEDS: SODIUM CHLORIDE 0.9% 1,000 ML IV STA (22:47)
[2024-02-08] MEDS: HYDROmorphone 0.5 MG/0.5 ML SYRINGE IVP STA (22:49)
[2024-02-08] MEDS: MAGNESIUM SULFATE-D5W PMX 1 GM in DEXTROSE/WATER 1 100ML.BAG IVPB ONE (22:50)
--- NOTE | 2024-02-08 23:43 | CT ---
EXAM: CT Angiography Chest With Intravenous Contrast CLINICAL HISTORY: ITS.REASON CT Reason: TAPAN, chest pain TECHNIQUE: Axial computed tomographic angiography images of the chest with intravenous contrast. CTDI is 19.97 mGy and DLP is 587.8 mGy-cm. This CT exam was performed using one or more of the following dose reduction techniques: automated exposure control, adjustment of the mA and/or kV according to patient size, and/or use of iterative reconstruction technique. MIP reconstructed images were created and reviewed. COMPARISON: No relevant prior studies available. FINDINGS: Pulmonary arteries: Unremarkable. No pulmonary embolism. Aorta: No acute findings. No thoracic aortic aneurysm. Lungs: Unremarkable. No mass. No consolidation. Pleural space: Unremarkable. No significant effusion. No pneumothorax. Heart: Unremarkable. No cardiomegaly. No significant pericardial effusion. No evidence of RV dysfunction. Bones/joints: No acute fracture. No dislocation. Soft tissues: Unremarkable. Lymph nodes: Unremarkable. No enlarged lymph nodes. Liver: Hepatic steatosis. Gallbladder and bile ducts: Cholecystectomy. IMPRESSION: 1. No pulmonary embolism. 2. Hepatic steatosis. 3. Cholecystectomy.
[2024-02-09] MEDS: TERBUTALINE 1 MG/ML VIAL SQ STA (00:44)
[2024-02-09] MEDS: ORPHENADRINE 30 MG/ML 2 ML VIAL IVP STA (00:44)
[2024-02-09] MEDS: LIDOCAINE 4% PATCH TOPICAL ONE (00:45)
[2024-02-09] MEDS: INDOMETHACIN 25 MG CAP PO STA (00:45)
[2024-02-09] MEDS: IPRATROPIUM-ALBUTEROL 3 ML NEB INHALATION STA (00:49)
[2024-02-09 02:16] VITALS: BP 114/68; PULSE 79; TEMP 98.2
== END 2024-02-09 02:16 | disposition home or self-care (01) ==
LOC: EC 19:13
DX: J45.909 Unspecified asthma, uncomplicated (principal); R09.1 Pleurisy; Z88.5 Allergy status to narcotic agent
CPT/HCPCS: 36415; 94640 ×2; 93005; 85379; 83880; 80053; 83605; 83735; 84484; 85025; 85610; 85730; 81001; 81025; 87636; 71046; 71275; 99285; 96365; 96375 ×2; 96376; 96372; J3105; J2360; J3475; J1885; J1171; Q9967; J2919

== ENCOUNTER 2024-04-29 14:04 | Emergency (ER) | payer MEDICARE, OTHER ==
--- NOTE | 2024-04-29 14:35 | ED ---
Abdominal Pain HPI - General Source: patient, RN notes reviewed, old records reviewed Mode of arrival: ambulatory Limitations: language barrier (hard of hearing) <Octavia Macias - Last Filed: 04/29/24 16:36> <Jaclyn Lama - Last Filed: 04/29/24 18:59> - General Chief Complaint: Abdominal Pain Stated Complaint: lower back pain Time Seen by Provider: 04/29/24 14:32 - History of Present Illness Initial Comments: Patient is a 39-year-old female presenting to the ER for evaluation of abdominal pain. History is obtained through deputy commissioner as patient is deaf. Patient reports yesterday she started to experience a sharp right lower quadrant abdominal pain. She denies any radiation of the pain. She admits to recent diarrhea. Patient took an old steroid, antibiotic, cough syrup yesterday as she is being treated for bronchitis. No analgesic medications. Patient reports a history of ovarian cysts and states a large one had to be removed years ago due to the size. She states pain feels similar. Patient denies any nausea, vomiting, vaginal bleeding or discharge, urinary complaints or fevers. (Octavia Macias) - Related Data Previous Rx's Medication Instructions Recorded Azithromycin [Zithromax Z Pack] 250 tab PO DIRECTED #4 tab 02/03/24 predniSONE 10 mg PO DIRECTED #30 tab 02/03/24 Benzonatate [Tessalon Perle] 200 mg PO TID PRN #20 cap 02/09/24 Budesonide/Formoterol Fumarate 2 puff INHALATION BID #10.2 gm 02/09/24 [Symbicort 80-4.5 Mcg Inhaler] Indomethacin [Indocin] 50 mg PO TID PRN #30 cap 02/09/24 Ketorolac [Toradol] 10 mg PO Q8HR #15 tab 04/29/24 Allergies Allergy/AdvReac Type Severity Reaction Status Date / Time morphine Allergy Unknown Verified 04/29/24 14:12 Review of Systems ROS Other: All systems not noted in ROS Statement are negative. <Octavia Macias - Last Filed: 04/29/24 16:36> ROS Other: All systems not noted in ROS Statement are negative. <Jaclyn Lama - Last Filed: 04/29/24 18:59> ROS Statement: Those systems with pertinent positive or pertinent negative responses have been documented in the HPI. Past Medical History Past Medical History: Asthma, Hearing Disorder / Deafness, Seizure Disorder Additional Past Medical History / Comment(s): deaf Past Surgical History: Section, Cholecystectomy Additional Past Surgical History / Comment(s): L foot. chochlear implant Smoking Status: Never smoker Past Alcohol Use History: None Reported Past Drug Use History: None Reported <Octavia Macias - Last Filed: 04/29/24 16:36> General Exam Limitations: language barrier General appearance: alert, in no apparent distress Respiratory exam: Present: normal lung sounds bilaterally. Absent: respiratory distress, wheezes, rales, rhonchi, stridor Cardiovascular Exam: Present: regular rate, normal rhythm, normal heart sounds. Absent: systolic murmur, diastolic murmur, rubs, gallop, clicks GI/Abdominal exam: Present: soft, tenderness (RLQ/LLQ), normal bowel sounds Extremities exam: Present: normal inspection, full ROM, normal capillary refill. Absent: tenderness, pedal edema, joint swelling, calf tenderness Neurological exam: Present: alert, oriented X3, CN II-XII intact Skin exam: Present: warm, dry, intact, normal color. Absent: rash <Octavia Macias - Last Filed: 04/29/24 16:36> Course Vital Signs 04/29/24 04/29/24 04/29/24 14:06 15:47 15:55 Temperature 97.9 F Pulse Rate 91 81 80 Respiratory 20 18 18 Rate Blood Pressure 131/86 O2 Sat by Pulse 98 Oximetry Medical Decision Making - Lab Data Result diagrams: 04/29/24 14:40 04/29/24 14:40 - Radiology Data Radiology results: report reviewed, image reviewed <Octavia Macias - Last Filed: 04/29/24 16:36> - Lab Data Result diagrams: 04/29/24 14:40 04/29/24 14:40 <Jaclyn Lama - Last Filed: 04/29/24 18:59> - Medical Decision Making Was pt. sent in by a medical professional or institution (, PA, NAVAL ENGINEER, urgent care, hospital, or assisted...) When possible be specific @ -No Did you speak to anyone other than the patient for history (EMS, parent, family, police, friend...)? What history was obtained from this source @ -No Did you review nursing and triage notes (agree or disagree)? Why? @ -I reviewed and agree with nursing and triage notes Were old charts reviewed (outside hosp., previous admission, EMS record, old EKG, old radiological studies, urgent care reports/EKG's, assisted records)? Report findings @ -No old charts were reviewed Differential Diagnosis (chest pain, altered mental status, abdominal pain women, abdominal pain men, vaginal bleeding, weakness, fever, dyspnea, syncope, headache, dizziness, GI bleed, back pain, seizure, CVA, palpatations, mental he alth, musculoskeletal)? @ -Differential Abdominal Pain Women:Appendicitis, Cholecystitis, divertic ulosis, ischemic bowel, pancreatitis, hepatitis, UTI, gastroenteritis, AAA, incarcerated hernia, bowel obstruction, constipation, inflammatory bowel, hepatitis, peptic ulcer disease, splenic infarction, perforated viscus, vulvitis, ovarian torsion, PID, kidney stone, placenta abruption, this is not meant to be an all-inclusive list EKG interpreted by me (3pts min.). @ -None done X-rays interpreted by me (1pt min.). @ -None done CT interpreted by me (1pt min.). @ -Pending U/S interpreted by me (1pt. min.). @ -Transvaginal ultrasound showing no evidence of acute process. There is an indeterminate hypoechoic area of the left adnexa unknown etiology. Right ovary not identified. What testing was considered but not performed or refused? (CT, X-rays, U/S, labs)? Why? @ -None What meds were considered but not given or refused? Why? @ -None Did you discuss the management of the patient with other professionals (professionals i.e. , PA, NAVAL ENGINEER, lab, RT, psych nurse, social work lecturer, optomechanical technician, teacher, senior commercial loan officer, disease case manager)? Give summary @ -No Was smoking cessation discussed for >3mins.? @ -No Was critical care preformed (if so, how long)? @ -No Were there social determinants of health that impacted care today? How? (Homelessness, low income, unemployed, alcoholism, drug addiction, transportation, low edu. Level, literacy, decrease access to med. care, penitentiary, rehab)? @ -No Was there de-escalation of care discussed even if they declined (Discuss DNR or withdrawal of care, Hospice)? DNR status @ -No What co-morbidities impacted this encounter? (DM, HTN, Smoking, COPD, CAD, Cancer, CVA, ARF, Chemo, Hep., AIDS, mental health diagnosis, sleep apnea, morbid obesity)? @ -None Was patient admitted / discharged? Hospital course, mention meds given and route, prescriptions, significant lab abnormalities, going to OR and other pertinent info. @ -39-year-old female presenting to the ER for evaluation of abdominal pain. Upon rooming, history and physical exam completed. Vitals acceptable limits. There is focal right lower quadrant and left lower quadrant abdominal tenderness. Normal bowel sounds with no rebound or guarding. Laboratory studies obtained showed a leukocytosis of 13 with a left shift. Lactic 1.6. Glucose 219. hCG less than 2.4. Urinalysis unimpressive. Transvaginal ultrasound initially obtained showed no evidence of acute process. There is an indeterminate hypoechoic area of the left adnexa of unknown etiology. Patient given symptomatic treatment in the ER with IV fluids, Zofran, Toradol. CT abdomen pelvis pending at time of signout to Jaclyn Lama PA-C at my shift completion. (Octavia Macias) Was pt. sent in by a medical professional or institution (CLARIBEL De Jesus, NAVAL ENGINEER, urgent care, hospital, or assisted...) When possible be specific @ -No Did you speak to anyone other than the patient for history (EMS, parent, family, police, friend...)? What history was obtained from this source @ -No Did you review nursing and triage notes (agree or disagree)? Why? @ -I reviewed and agree with nursing and triage notes Were old charts reviewed (outside hosp., previous admission, EMS record, old EKG, old radiological studies, urgent care reports/EKG's, assisted records)? Report findings @ -No old charts were reviewed Differential Diagnosis (chest pain, altered mental status, abdominal pain women, abdominal pain men, vaginal bleeding, weakness, fever, dyspnea, syncope, headache, dizziness, GI bleed, back pain, seizure, CVA, palpatations, mental health, musculoskeletal)? @ -Differential Abdominal Pain Women: Appendicitis, Cholecystitis, diverticulosis, ischemic bowel, pancreatitis, hepatitis, UTI, gastroenteritis, AAA, incarcerated hernia, bowel obstruction, constipation, inflammatory bowel, hepatitis, peptic ulcer disease, splenic infarction, perforated viscus, vulvitis, ovarian torsion, PID, kidney stone, placenta abruption, this is not meant to be an all-inclusive list EKG interpreted by me (3pts min.). @ -None X-rays interpreted by me (1pt min.). @ -None done CT interpreted by me (1pt min.). @ -CT abdomen pelvis no acute process, no suspicious mass to correlate with ultrasound, no obstructive uropathy or renal calculus, appendix within normal limits U/S interpreted by me (1pt. min.). @ -Pelvic ultrasound reveals no acute process, hypoechoic area of left adnexa What testing was considered but not performed or refused? (CT, X-rays, U/S, labs)? Why? @ -None What meds were considered but not given or refused? Why? @ -None Did you discuss the management of the patient with other professionals (professionals i.e. , PA, NAVAL ENGINEER, lab, RT, psych nurse, social work lecturer, optomechanical technician, teacher, senior commercial loan officer, disease case manager)? Give summary @ -No Was smoking cessation discussed for >3mins.? @ -No Was critical care preformed (if so, how long)? @ -No Were there social determinants of health that impacted care today? How? (Homelessness, low income, unemployed, alcoholism, drug addiction, tra nsportation, low edu. Level, literacy, decrease access to med. care, penitentiary, rehab)? @ -No Was there de-escalation of care discussed even if they declined (Discuss DNR or withdrawal of care, Hospice)? DNR status @ -No What co-morbidities impacted this encounter? (DM, HTN, Smoking, COPD, CAD, Cancer, CVA, ARF, Chemo, Hep., AIDS, mental health diagnosis, sleep apnea, morbid obesity)? @ -None Was patient admitted / discharged? Hospital course, mention meds given and route, prescriptions, significant lab abnormalities, going to OR and other pertinent info. @ -Discharge. 39-year-old female with right lower quadrant abdominal pain x 1 day. Patient is deaf and all communication was done through deputy commissioner at bedside. Patient was provided with IV fluids, analgesics and antiemetics for supportive care. Lab work remarkable for mild leukocytosis of 13. Urinalysis reveals contaminated sample however not indicative of urinary tract infection, and negative for blood. Pelvic ultrasound revealed no acute process however there is a hypoechoic area of left adnexa. CT abdomen pelvis send obtained which revealed no acute process. Results discussed with patient. Pain is well- controlled at this time. I do not believe there is any emergent etiology causing symptoms today. I highly suspect symptoms are due to ovarian cyst. Advised close follow-up with PCP and [employer] MANAGER. Appropriate return precautions discussed. Case was discussed with the ED attending Dr. Oconnor. Undiagnosed new problem with uncertain prognosis? @ -No Drug Therapy requiring intensive monitoring for toxicity (Heparin, Nitro, Insulin, Cardizem)? @ -No Were any procedures done? @ -No Diagnosis/symptom? @ -Abdominal pain Acute, or Chronic, or Acute on Chronic? @ -Acute Uncomplicated (without systemic symptoms) or Complicated (systemic symptoms)? @ -Uncomplicated Side effects of treatment? @ -No Exacerbation, Progression, or Severe Exacerbation? @ -No Poses a threat to life or bodily function? How? (Chest pain, [place], [place], pneumonia, PE, COPD, DKA, ARF, appy, cholecystitis, CVA, Diverticulitis, Homicidal, Suicidal, threat to staff... and all critical care pts) @ -No (Jaclyn Lama) - Lab Data Lab Results 04/29/24 04/29/24 04/29/24 Range/Units 14:40 14:40 14:40 WBC 13.0 H (3.8-10.6) k/uL RBC 4.42 (3.80-5.40) m/uL Hgb 12.6 (11.4-16.0) gm/dL Hct 38.8 (34.0-46.0) % MCV 87.9 (80.0-100.0) fL MCH 28.4 (25.0-35.0) pg MCHC 32.3 (31.0-37.0) g/dL RDW 13.9 (11.5-15.5) % Plt Count 373 (150-450) k/uL MPV 7.5 Neutrophils % 69 % Lymphocytes % 24 % Monocytes % 4 % Eosinophils % 1 % Basophils % 0 % Neutrophils # 9.0 H (1.3-7.7) k/uL Lymphocytes # 3.1 (1.0-4.8) k/uL Monocytes # 0.6 (0-1.0) k/uL Eosinophils # 0.1 (0-0.7) k/uL Basophils # 0.0 (0-0.2) k/uL Sodium (137-145) mmol/L Potassium (3.5-5.1) mmol/L Chloride (98-107) mmol/L Carbon Dioxide (22-30) mmol/L Anion Gap mmol/L BUN (7-17) mg/dL Creatinine (0.52-1.04) mg/dL Est GFR (CKD-EPI)AfAm (>60 ml/min/1.73 sqM) Est GFR (CKD-EPI)NonAf (>60 ml/min/1.73 sqM) Glucose (74-99) mg/dL Plasma Lactic Acid Kody (0.7-2.0) mmol/L Calcium (8.4-10.2) mg/dL Total Bilirubin (0.2-1.3) mg/dL AST (14-36) U/L ALT (4-34) U/L Alkaline Phosphatase (38-126) U/L Total Protein (6.3-8.2) g/dL Albumin (3.5-5.0) g/dL Amylase (30-110) U/L Lipase (23-300) U/L HCG, Quant mIU/mL Urine Color Yellow Urine Appearance Cloudy H (Clear) Urine pH 6.0 (5.0-8.0) Ur Specific [place] 1.026 (1.001-1.035) Urine Protein Trace H (Negative) Urine Glucose (UA) Trace H (Negative) Urine Ketones Negative (Negative) Urine Blood Negative (Negative) Urine Nitrite Negative (Negative) Urine Bilirubin Negative (Negative) Urine Urobilinogen <2.0 (<2.0) mg/dL Ur Leukocyte Esterase Negative (Negative) Urine WBC 1 (0-5) /hpf Ur Squamous Epith Cells 6 H (0-4) /hpf Urine Bacteria Rare H (None) /hpf Urine Mucus Occasional H (None) /hpf Urine HCG, Qual Not Detected (Not Detectd) 04/29/24 04/29/24 Range/Units 14:40 14:40 WBC (3.8-10.6) k/uL RBC (3.80-5.40) m/uL Hgb (11.4-16.0) gm/dL Hct (34.0-46.0) % MCV (80.0-100.0) fL MCH (25.0-35.0) pg MCHC (31.0-37.0) g/dL RDW (11.5-15.5) % Plt Count (150-450) k/uL MPV Neutrophils % % Lymphocytes % % Monocytes % % Eosinophils % % Basophils % % Neutrophils # (1.3-7.7) k/uL Lymphocytes # (1.0-4.8) k/uL Monocytes # (0-1.0) k/uL Eosinophils # (0-0.7) k/uL Basophils # (0-0.2) k/uL Sodium 135 L (137-145) mmol/L Potassium 3.6 (3.5-5.1) mmol/L Chloride 102 (98-107) mmol/L Carbon Dioxide 24 (22-30) mmol/L Anion Gap 9 mmol/L BUN 10 (7-17) mg/dL Creatinine 0.57 (0.52-1.04) mg/dL Est GFR (CKD-EPI)AfAm >90 (>60 ml/min/1.73 sqM) Est GFR (CKD-EPI)NonAf >90 (>60 ml/min/1.73 sqM) Glucose 219 H (74-99) mg/dL Plasma Lactic Acid Kody 1.6 (0.7-2.0) mmol/L Calcium 9.9 (8.4-10.2) mg/dL Total Bilirubin 0.4 (0.2-1.3) mg/dL AST 17 (14-36) U/L ALT 42 H (4-34) U/L Alkaline Phosphatase 109 (38-126) U/L Total Protein 6.6 (6.3-8.2) g/dL Albumin 3.8 (3.5-5.0) g/dL Amylase 47 (30-110) U/L Lipase 108 (23-300) U/L HCG, Quant <2.4 mIU/mL Urine Color Urine Appearance (Clear) Urine pH (5.0-8.0) Ur Specific [place] (1.001-1.035) Urine Protein (Negative) Urine Glucose (UA) (Negative) Urine Ketones (Negative) Urine Blood (Negative) Urine Nitrite (Negative) Urine Bilirubin (Negative) Urine Urobilinogen (<2.0) mg/dL Ur Leukocyte Esterase (Negative) Urine WBC (0-5) /hpf Ur Squamous Epith Cells (0-4) /hpf Urine Bacteria (None) /hpf Urine Mucus (None) /hpf Urine HCG, Qual (Not Detectd) Disposition <Octavia Macias - Last Filed: 04/29/24 16:36> Is patient prescribed a controlled substance at d/c from ED?: No Time of Disposition: 18:59 <Jaclyn Lama - Last Filed: 04/29/24 18:59> Clinical Impression: Abdominal pain Disposition: HOME SELF-CARE Condition: Stable Instructions (If sedation given, give patient instructions): Abdominal Pain (ED) Additional Instructions: Please return to the Emergency Department if symptoms worsen or any other concerns. Prescriptions: Ketorolac [Toradol] 10 mg PO Q8HR #15 tab Referrals: Cayla Gomez DO [Primary Care Provider] - 1-2 days
[2024-04-29] MEDS: SODIUM CHLORIDE 0.9% 1,000 ML IV STA (14:47)
[2024-04-29] MEDS: KETOROLAC 15 MG/ML 1 ML VIAL IVP STA ×2 (14:48→19:31)
[2024-04-29] MEDS: ONDANSETRON 4 MG/2 ML VIAL IVP STA (14:49)
[2024-04-29 15:03] LABS: Basophils % (A) 0 %; Eosinophils # (A) 0.1 k/uL (0-0.7); Eosinophils % (A) 1 %; HCT 38.8 % (34.0-46.0); HGB 12.6 gm/dL (11.4-16.0); Lymphocytes # (A) 3.1 k/uL (1.0-4.8); Lymphocytes % (A) 24 %; MCH 28.4 pg (25.0-35.0); MCHC 32.3 g/dL (31.0-37.0); MCV 87.9 fL (80.0-100.0); Mean Platelet Volume 7.5; Monocytes # (A) 0.6 k/uL (0-1.0); Monocytes % (A) 4 %; Neutrophils % (A) 69 %; Platelet Count 373 k/uL (150-450); RBC 4.42 m/uL (3.80-5.40); RDW 13.9 % (11.5-15.5)
[2024-04-29 15:12] LABS: ALT 42 U/L (4-34); AST 17 U/L (14-36); African American GFR (CKD) >90 (>60 ml/min/1.73 sqM); Albumin 3.8 g/dL (3.5-5.0); Alkaline Phosphatase 109 U/L (38-126); Amylase 47 U/L (30-110); Anion Gap 9 mmol/L; Appearance,Urine Cloudy (Clear); Bacteria,Urine Rare /hpf; Bilirubin,Urine Negative (Negative); Blood Urea Nitrogen 10 mg/dL (7-17); Blood,Urine Negative (Negative); Calcium 9.9 mg/dL (8.4-10.2); Carbon Dioxide 24 mmol/L (22-30); Chloride 102 mmol/L (98-107); Color,Urine Yellow; Glucose 219 mg/dL (74-99); Glucose,Urine (UA) Trace (Negative); Ketones,Urine Negative (Negative); Leukocyte Esterase,Urine Negative (Negative); Lipase 108 U/L (23-300); Mucus,Urine Occasional /hpf; Nitrite,Urine Negative (Negative); Non-African American GFR(CKD) >90 (>60 ml/min/1.73 sqM); Potassium 3.6 mmol/L (3.5-5.1); Protein,Urine Trace (Negative); Sodium 135 mmol/L (137-145); Specific Gravity,Urine 1.026 (1.001-1.035); Squamous Epithelial Cell,Urine 6 /hpf (0-4); Total Bilirubin 0.4 mg/dL (0.2-1.3); Total Protein 6.6 g/dL (6.3-8.2); Urobilinogen,Urine <2.0 mg/dL (<2.0); WBC,Urine 1 /hpf (0-5)
[2024-04-29 15:28] LABS: HCG,Quantitative Serum <2.4 mIU/mL
[2024-04-29] MEDS: IPRATROPIUM-ALBUTEROL 3 ML NEB INHALATION STA (15:47)
[2024-04-29 15:50] VITALS: RESP 18
--- NOTE | 2024-04-29 16:21 | US ---
EXAMINATION TYPE: US transvaginal DATE OF EXAM: 04/29/2024 COMPARISON: NONE CLINICAL INDICATION: Female, 39 years old with history of RLQ abd pain; RLQ pain that started last ni ght. Hx ovarian cyst, hx of ectopic . Patient is unsure of her pelvic surgical history-unsur e if she had an ovary removed before or not. Hx twin . material man during exam . TECHNIQUE: Transvaginal (TV) and Transabdominal (TA) . Transabdominal grayscale sonographic images of the pelvis were acquired. Doppler imaging: Color Doppler Images were obtained. Spectral doppler images were obtained of left ovary. FINDINGS: Date of LMP: Unknown per patient, sometime last month. EXAM MEASUREMENTS: Uterus: 11.6 x 6.0 x 5.3 cm Endometrial Stripe: 1.55 cm Right Ovary: Not seen Left Ovary: 3.4 x 2.1 x 2.3 cm 1. Uterus: Enlarged. Heterogeneous. Anterior uterine defect seen-?Question from prior C section. Subcentimeter anechoic areas seen in heterogeneous cervix. 2. Endometrium: 1.55 cm 3. Right Ovary: Not seen 4. Left Ovary: Follicles noted Spectral, color and waveform doppler imaging shows arterial and venous flow within the left ovary, seen transabdominally only. Right ovary not seen. 5. Bilateral Adnexa: Hypoechoic/complex area seen left adnexa between uterus and ovary seen TA onl y: 1.8 x 2.1 x 1.0 cm. 6. Posterior cul-de-sac: Appears wnl IMPRESSION: 1. No evidence for acute process. 2. Indeterminate hypoechoic area in the left adnexa of unknown etiology. Attention on follow up CT. 3. Endometrium within normal limits for patient's age. 4. Prior probable scar noted. [facility], , 04/29/2024 4:19 PM
--- NOTE | 2024-04-29 17:49 | CT ---
EXAMINATION TYPE: CT abdomen pelvis w con DATE OF EXAM: 04/29/2024 5:28 PM COMPARISON: CT abdomen pelvis most recent from CLINICAL INDICATION: Female, 39 years old with history of RLQ abd pain/diarrhea; ABD PAIN TECHNIQUE: Axial CT abdomen pelvis w con;Sagittal and coronal reformats were created on a separate w orkstation. Contrast used:100 mL of Isovue 300 with IV Contrast, (none if empty) Oral contrast used: without Oral Contrast (none if empty) CT DLP: 1583 mGycm, Automated exposure control for dose reduction was used. FINDINGS: LOWER CHEST: Unremarkable ABDOMEN LIVER: Unremarkable GALLBLADDER AND BILE DUCTS: The gallbladder is surgically absent. PANCREAS: Unremarkable. SPLEEN: Unremarkable. ADRENAL GLANDS: Unremarkable. KIDNEYS AND URETERS: No evidence of hydronephrosis or renal calculus. The ureters are unremarkable. PELVIS BLADDER: No evidence for wall thickening or mass given limitations of exam. REPRODUCTIVE: The right ovary may be surgically absent sutures are identified. Left ovary slightly vi sualized. No suspicious mass identified to correlate with finding on ultrasound same day. ABDOMEN & P BRYSON STOMACH AND BOWEL: No evidence of bowel obstruction. PERITONEUM/RETROPERITONEUM: No evidence of pneumoperitoneum or free fluid. VASCULATURE: No evidence of aortic aneurysm. MUSCULOSKELETAL: No acute osseous abnormalities LYMPH NODES: No gross evidence for lymphadenopathy. SOFT TISSUE/ABDOMINAL WALL: Unremarkable IMPRESSION: No acute abdominal process. No suspicious mass to correlate with recent ultrasound. No obstructive ur opathy or renal calculus. The appendix is visualized and and is within normal limits. The right ovary may be surgically absent carotid with history. [facility], , 04/29/2024 5:47 PM
[2024-04-29 19:26] VITALS: BP 109/61; PULSE 87
[2024-04-29 19:44] VITALS: TEMP 98.4
== END 2024-04-29 19:44 | disposition home or self-care (01) ==
LOC: EC 14:04
DX: R10.31 Right lower quadrant pain (principal); Z88.5 Allergy status to narcotic agent
CPT/HCPCS: 36415; 94640; 80053; 82150; 83605; 83690; 85025; 81001; 81025; 84702; 93976; 76856; 76830; 74177; 99284; 96374; 96375; 96376; 96361; J2405; J1885; Q9967